=== PATIENT | female | born 1995 | race Caucasian/White ===

== ENCOUNTER → 2017-02-19 | Outpatient (CLI) | payer MEDICAID ==
[~2017-02-19] MED LIST: ACETAMINOPHEN325 MG PO; GLYNASE (MICRO1.5 MG PO; HUMULIN R100 UNIT/1 SUB-Q; MOTRIN800 MG PO; NORCO 5-325 MG1 TAB PO; NORVASC5 MG PO; NOVOLOG100 UNIT/M; PRENATAL 1+1)(P1 TAB PO; SURFAK240 MG PO; ZOLOFT50 MG PO
== END | disposition disaster alternative care site (69) ==
LOC: GLAB 08:00
DX: Z36 Encounter for antenatal screening of mother (principal)

== ENCOUNTER 2017-03-22 14:30 | Observation (INO) | payer MEDICAID ==
[~2017-03-22] VITALS: Ht 160 cm; Wt 115.3 kg
--- NOTE | ~2017-03-22 | HP ---
PATIENT'S NAME: LEXX CHAPIN [facility] AGE: 21 Y [address] ROOM: [address] [address] LOCATION: BS ADMIT DATE: 03/22/2017 History & Physical DISCHARGE DATE: 03/22/2017 FAMILY PHYSICIAN: Aaron Jean MD ATTENDING PHYSICIAN: Carlos Alberto Berman DATE OF SERVICE: HISTORY OF PRESENT ILLNESS: The patient is a 21-year-old G4, P3-0-0-3, who was seen in the clinic today for a checkup. She is 33 weeks and 2 days. She has diagnosis of gestational diabetes class A2 as well as preeclampsia without severe features. The patient was reporting severe headache that was not responsive to Tylenol. Her blood pressures were in the mild range. It was recommended she come over to Labor and Delivery for IV fluids, laboratory work, serial blood pressures, on Celestone. The patient states that she feels better after receiving IV fluids. She has had nausea. Her was recently sick as well. Her nausea is improving. She had not had anything to eat or drink today. OBJECTIVE: VITAL SIGNS: Blood pressure is 141 to 154 over 65 to 93. GENERAL: She is alert and oriented, in no acute distress. HEART: Regular rate and rhythm. No murmurs, rubs, or gallops. LUNGS: Clear to auscultation bilaterally. ABDOMEN: Soft, gravid, nontender. EXTREMITIES: DTRs are 1+. GENITOURINARY: heart tone 145, positive accelerations, no decelerations, moderate variability. [place] irritability. LABORATORY WORK: Hemoglobin is 11.1, platelets of 180,000. Creatinine of 0.6. AST and ALT are 10 and less than 10. ASSESSMENT: The patient is a 21-year-old G4, P3-0-0-3 with intrauterine at 33 weeks and 2 days, who presents for evaluation of preeclampsia. PLAN: The patient did receive Celestone x1 since she had been here. Her headache is much improved after being hydrated with IV fluids. Her laboratory work is normal. While dictating this note, the patient did have a severe range of blood pressure of 163/75, going to now watch the patient for another couple of hours and see if blood pressures improve possibly over night. We will discuss this with the patient. PATIENT'S NAME: ELXX CHAPIN [facility] AGE: 21 Y [address] ROOM: [place] [address] LOCATION: [facility] ADMIT DATE: 03/22/2017 History & Physical DISCHARGE DATE: 03/22/2017 FAMILY PHYSICIAN: Aaron Jean MD ATTENDING PHYSICIAN: Carlos Alberto Berman MD THUAN DUMAS/cadence /[id number] D: [id number] T: [id number] HISTORY & PHYSICAL
[~2017-03-22 14:30] MED LIST changes: -ACETAMINOPHEN325 MG PO; -GLYNASE (MICRO1.5 MG PO; -HUMULIN R100 UNIT/1 SUB-Q; -NOVOLOG100 UNIT/M
[2017-03-22 15:22] LABS: BASOPHIL % 0.2 %; EOSINOPHIL # 0.1 K/uL (0.0-0.5); EOSINOPHIL % 0.8 %; HEMATOCRIT 32.6 % (33.0-46.0); HEMOGLOBIN 11.1 g/dL (11.0-15.0); IMMATURE GRANULOCYTE # 0.1 K/uL (0.0-0.3); LYMPHOCYTE % 14.7 %; MCH 29.5 pg (27.0-34.0); MCV 86.7 fl (83.0-98.0); MONOCYTE # 1.2 K/uL (0.0-1.0); MONOCYTE % 8.6 %; MPV 9.7 fl (9.4-12.4); NEUTROPHIL # (ANC) 10.1 K/uL (1.8-7.8); NEUTROPHIL % 74.7 %; NRBC % 0 /100WBC (0-0.00); PLATELET COUNT 180 K/uL (150-450); RBC 3.76 M/uL (3.50-5.00); WBC 13.4 K/uL (4.0-11.0)
[2017-03-22 15:40] LABS: ALBUMIN 2.6 gm/dL (3.5-5.0); ALK PHOS 94 IU/L (33-138); ANION GAP 12.5 (10.0-19.0); AST 10 IU/L (10-40); BLOOD UREA NITROGEN 5 mg/dL (6-24); CALCIUM 8.8 mg/dL (8.5-10.5); CHLORIDE 107 mMol/L (96-110); CO2 24 mMol/L (22-32); CREATININE 0.6 mg/dL (0.5-1.1); ESTIMATED GFR (MDRD EQUATION) > 60; POTASSIUM 3.5 mMol/L (3.7-5.1); SODIUM 140 mMol/L (135-145); TOTAL BILIRUBIN 0.2 mg/dL (0.0-1.5); TOTAL PROTEIN 6.1 g/dL (6.0-8.4)
[2017-03-22 15:42] LABS: ALT < 10 IU/L (12-78)
[2017-03-22] MEDS ORDERED: ACETAMINOPHEN325 MG PO (16:45)
[2017-03-22] MEDS ORDERED: GLYNASE (MICRO1.5 MG PO (16:46)
--- NOTE | 2017-03-22 17:42 | NUR ---
BP'S RANGE FROM 140-150'S/60-90'S. Rated headache pain a 7 on admission and now rates it a 4 stating "It's so much better". Iv infusing in Left hand patent with 1000ML in LR. Celestone 12mg given. Labs drawn and reported to . GBS culture obtained. FHT's reactive with accels and audible movement.
[2017-03-23] MEDS ORDERED: HUMULIN R100 UNIT/1 SUB-Q (14:49)
[2017-03-23] MEDS ORDERED: NOVOLOG100 UNIT/M (14:54)
== END 2017-03-22 20:30 | disposition disaster alternative care site (69) ==
LOC: GOBS 14:30 → GOBM 14:30 → GOBS 14:33 → GOBM 14:34 → GOBS 20:30 → GOBM 20:30 → GOBS 20:30
PROVIDERS: ADMIT Obstetrics & Gynecology
DX: O14.93 Unspecified pre-eclampsia, third trimester (principal); O24.419 Gestational diabetes mellitus in pregnancy, unspecified control; Z3A.33 33 weeks gestation of pregnancy
CPT/HCPCS: G0463; J0702; J7120

== ENCOUNTER 2017-03-23 01:24 | Observation (INO) | payer MEDICAID ==
[~2017-03-23] VITALS: Ht 160 cm; Wt 115.3 kg
--- NOTE | ~2017-03-23 | HP ---
PATIENT'S NAME: TAVARES [facility] AGE: 21 Y [address] ROOM: [place] [address] LOCATION: [facility] ADMIT DATE: 03/23/2017 History & Physical DISCHARGE DATE: FAMILY PHYSICIAN: Aaron Jean MD ATTENDING PHYSICIAN: TANJA MOLINA DATE OF SERVICE: 03/23/2017 CHIEF COMPLAINT: Elevated blood sugar. HISTORY OF PRESENT ILLNESS: The patient is a 21-year-old -0-0-3, with intrauterine at 33 weeks and 2 days, who presented to Labor and Delivery for blood sugar at home greater than 300. The patient was actually here for observation yesterday for rule out severe preeclampsia and received Celestone. She strongly desired discharge to home and was allowed to be discharged home, but was instructed to call if blood sugars greater than 200. She did have that at home and therefore called and was recommended that she come in to be started on an insulin drip. The patient's is complicated by preeclampsia and gestational diabetes class A2. PAST MEDICAL HISTORY: Obesity. PAST SURGICAL HISTORY: None. SENIOR ARCHITECT/DESIGN MANAGER HISTORY: She is a -0-0-3 with a history of 3 spontaneous term vaginal deliveries complicated by hypertension. MEDICATIONS: 1. Glyburide. 2. vitamin. ALLERGIES: NONE. SOCIAL HISTORY: No alcohol or drug use. The patient does smoke, half a pack per day. FAMILY HISTORY: PATIENT'S NAME: SCOTTSDALE [facility] AGE: 21 Y [address] ROOM: [place] [address] LOCATION: [facility] ADMIT DATE: 03/23/2017 History & Physical DISCHARGE DATE: FAMILY PHYSICIAN: Aaron Jean MD ATTENDING PHYSICIAN: TANJA MOLINA Noncontributory. Negative except as noted in HPI. PHYSICAL EXAMINATION: VITAL SIGNS: Blood pressures since admission have ranged from 132 to 153/64 to 85. GENERAL: She is alert and oriented, in no acute distress. ABDOMEN: Soft. Gravid. Nontender. heart tone at baseline 140, moderate variability, positive accels, no decels. [place] shows no contractions. Blood sugar on admission was 214. ASSESSMENT: The patient is a 21-year-old, -0-0-3 with intrauterine at 33 weeks and 2 days with gestational diabetes and preeclampsia. Admitted for blood sugar control secondary to Celestone. PLAN: The patient's blood sugars are elevated right now secondary to receiving Celestone yesterday. She is to receive her second dose today at 3 o'clock. She was given this for concern for worsening preeclampsia and need for delivery within the next week due to development of severe features. She strongly desires to be discharged to home. Therefore, we will continue with insulin drip at this time and we will consult diabetic education for home insulin teaching and I will send the patient home on a sliding scale insulin. Plan is to get her through the next couple days until the steroid effect wears off. MD THUAN DUMAS/cadence /[id number] D: [id number] T: [id number] HISTORY & PHYSICAL
[~2017-03-23 01:24] MED LIST changes: +ACETAMINOPHEN325 MG PO; +GLYNASE (MICRO1.5 MG PO
--- NOTE | 2017-03-23 05:42 | NUR ---
bps run 130-140/70-80. complaing of her chest feeling heavy. IV insulin started at 0215. accucheck at home was 304. 0500-141. next check due at 0700. received celestone last night before being discharged.
[2017-03-23] MEDS ORDERED: HUMULIN R100 UNIT/1 SUB-Q (14:49)
[2017-03-23] MEDS ORDERED: NOVOLOG100 UNIT/M (14:54)
== END 2017-03-23 16:15 | disposition disaster alternative care site (69) ==
LOC: GOBM 01:24 → GOBS 01:24 → GOBM 01:25 → GOBS 16:15
PROVIDERS: ADMIT Obstetrics & Gynecology
DX: O24.419 Gestational diabetes mellitus in pregnancy, unspecified control (principal); O14.93 Unspecified pre-eclampsia, third trimester; O99.213 Obesity complicating pregnancy, third trimester; O99.333 Smoking (tobacco) complicating pregnancy, third trimester; Z3A.33 33 weeks gestation of pregnancy
CPT/HCPCS: G0378; G0463; J7121